=== PATIENT | male | born 1960 | race Caucasian/White ===

== ENCOUNTER 2018-03-15 20:46 | Emergency (ER) | payer OTHER ==
[~2018-03-15] VITALS: Ht 188 cm; Wt 83.9 kg
[2018-03-15] MEDS ORDERED: LISINOPRIL20 MG PO (21:05)
[2018-03-15] MEDS ORDERED: NORVASC5 MG PO (21:06)
[2018-03-15] MEDS ORDERED: NORCO 5-325 TA1 EAC1 PO (22:09)
[2018-03-15] MEDS ORDERED: AUGMENTIN 875-1 EACH PO (22:09)
[2018-03-15 22:34] VITALS: BP 113/83
== END 2018-03-15 22:35 | disposition home or self-care (01) ==
LOC: M.ERS 20:46
DX: S61.351A Open bite of left index finger with damage to nail, initial encounter (principal); S61.311A Laceration without foreign body of left index finger with damage to nail, initial encounter; I10 Essential (primary) hypertension; F17.200 Nicotine dependence, unspecified, uncomplicated; W54.0XXA Bitten by dog, initial encounter; Y93.89 Activity, other specified; Y92.89 Other specified places as the place of occurrence of the external cause; Y99.8 Other external cause status

== ENCOUNTER → 2020-02-25 | Outpatient (CLI) | payer OTHER ==
[~2020-02-25] MED LIST: AUGMENTIN 875-1 EACH PO; LISINOPRIL20 MG PO; NORCO 5-325 TA1 EAC1 PO; NORVASC5 MG PO
== END ==
LOC: M.MRI 13:08
DX: S43.492A Other sprain of left shoulder joint, initial encounter (principal); S46.812A Strain of other muscles, fascia and tendons at shoulder and upper arm level, left arm, initial encounter; M19.012 Primary osteoarthritis, left shoulder; M77.8 Other enthesopathies, not elsewhere classified; X58.XXXA Exposure to other specified factors, initial encounter; Y93.89 Activity, other specified; Y92.89 Other specified places as the place of occurrence of the external cause; Y99.8 Other external cause status

== ENCOUNTER → 2020-11-24 | Outpatient (CLI) | payer OTHER | LOC: M.MRI 11:30 | PROVIDERS: ATTEND Nurse Practitioner Family | DX: S83.241A Other tear of medial meniscus, current injury, right knee, initial encounter (principal); S83.281A Other tear of lateral meniscus, current injury, right knee, initial encounter; M25.461 Effusion, right knee; M67.461 Ganglion, right knee; M71.21 Synovial cyst of popliteal space [Baker], right knee; X58.XXXA Exposure to other specified factors, initial encounter; Y93.89 Activity, other specified; Y92.89 Other specified places as the place of occurrence of the external cause; Y99.8 Other external cause status ==

== ENCOUNTER → 2021-11-05 | Outpatient (CLI) | payer OTHER | LOC: M.CT 16:27 | PROVIDERS: ATTEND Nurse Practitioner Family | DX: Z12.2 Encounter for screening for malignant neoplasm of respiratory organs (principal); J43.2 Centrilobular emphysema; I71.2 Thoracic aortic aneurysm, without rupture; J98.4 Other disorders of lung; I70.0 Atherosclerosis of aorta; Z87.891 Personal history of nicotine dependence ==